=== PATIENT | female | born 1930 | race Caucasian/White ===

== ENCOUNTER 2018-05-24 08:31 | Outpatient (CLI) | payer OTHER ==
[~2018-05-24 08:31] MED LIST: NEURONTIN300 MG PO; NEURONTIN800 MG PO; PROCARDIA90 MG/BLIS PO
== END 2018-05-24 09:21 | disposition home or self-care (01) ==
LOC: LAB 08:31
DX: Z86.010 Personal history of colon polyps (principal)

== ENCOUNTER 2018-06-01 06:30 | Day surgery (SDC) | payer OTHER | END 2018-06-01 10:55 | disposition home or self-care (01) | LOC: AMB-ENDOS 06:30 | DX: K62.1 Rectal polyp (principal) ==